=== PATIENT | female | born 1970 | race Two or more races ===

== ENCOUNTER 2016-07-22 11:29 | Emergency (ER) | payer SELFPAY ==
[~2016-07-22 11:29] MED LIST: FLEXERIL5 MG PO; FLOMAX0.4 M1 PO; NO HOME MEDICATION XX; NO HOME MEDS; NORCO 5-325 TA1 EACH PO; NORCO 5/325 TAB1 TAB PO; PERCOCET 5-3251 EACH PO; PRENATAL1 TAB; ZOFRAN ODT4 MG PO
[2016-07-22] MEDS ORDERED: NORCO 5-325 TA1 EACH PO (12:56)
== END 2016-07-22 13:00 ==
LOC: EDMED 11:29
DX: M54.2 Cervicalgia (principal)
CPT/HCPCS: J1885